=== PATIENT | male | born 1990 | race Caucasian/White ===

== ENCOUNTER 2021-09-18 07:52 | Day surgery (SDC) | payer OTHER ==
[~2021-09-18] VITALS: Ht 165.1 cm; Wt 71.2 kg
[2021-09-18 08:08] VITALS: BP 142/72
[2021-09-18 09:26] LABS: HEMATOCRIT 48.1 % (39.0-50.0); HEMOGLOBIN 15.3 g/dl (14.0-18.0); IMMATURE GRANULOCYTES 0.3 % (0.0-5.0); MEAN CELL VOLUME 86.5 fL CALC (80.0-100.0); MEAN CORPUSCULAR HGB 27.5 pG CALC (26.0-32.0); MEAN CORPUSCULAR HGB CONC 31.8 g/dL CAL (32.0-36.0); NEUT# 4.15 thou/uL (1.82-7.42); RED BLOOD COUNT 5.56 mill/uL (4.70-6.10); RED CELL DISTRI WIDTH 12.4 % (11.5-15.5)
[2021-09-18 11:47] VITALS: BP 98/58
[2021-09-18] MEDS ORDERED: KLONOPIN0.5 MG PO (17:24)
[2021-09-18] MEDS ORDERED: NALTREXONE50 MG PO (17:27)
[2021-09-18] MEDS ORDERED: CLONIDINE0.1 MG PO (17:28)
[2021-09-18 17:40] VITALS: BP 117/58
[2021-09-18 17:58] VITALS: BP 116/57
[2021-09-19 04:00] VITALS: BP 141/63
[2021-09-19 06:31] LABS: ALBUMIN 4.1 g/dL (3.2-5.0); ALKALINE PHOSPHATASE 65 u/l (38-126); ANION GAP 13 (6-22 (CALC)); BILIRUBIN, TOTAL 0.5 mg/dL (0.0-1.4); BUN 20 mg/dL (9-20); BUN/CREATININE RATIO 19 (12-20 (CALC)); CARBON DIOXIDE 27 mmol/l (22-30); CHLORIDE 102 mmol/l (95-108); GFR > 60 ML/MIN (>=60 (CALC)); GFR FOR AFR.AMER. > 60 ML/MIN (>=60 (CALC)); MAGNESIUM 1.9 mg/dL (1.6-2.3); POTASSIUM 3.9 mmol/l (3.5-5.1); SGOT/AST 31 u/l (17-59); SODIUM 139 mmol/l (137-146)
[2021-09-19 07:32] VITALS: BP 131/58
[2021-09-19 10:19] VITALS: BP 108/58
[2021-09-19 12:55] VITALS: BP 139/78
== END 2021-09-19 13:45 | disposition home or self-care (01) | DRG 897 ==
LOC: ANR 07:52 → MS2 07:52 → ANR 08:16
PROVIDERS: ATTEND Anesthesiology
DX: F11.20 Opioid dependence, uncomplicated (principal)
CPT/HCPCS: J2060; J2354